=== PATIENT | female | born 1960 | race Caucasian/White ===

== ENCOUNTER 2017-10-29 13:33 | Day surgery (SDC) | payer OTHER ==
[2017-10-24 13:02] LABS: BASOPHILS % (AUTO) 0.4 % (0-1); EOSINOPHILS # (AUTO) 0.2 X10'3 (0-0.9); EOSINOPHILS % (AUTO) 2.2 % (0-6); HEMATOCRIT 39.5 % (35.0-45.0); HEMOGLOBIN 13.6 g/dl (12.0-16.0); LYMPHOCYTES # (AUTO) 1.8 X10'3 (1.1-4.8); LYMPHOCYTES % (AUTO) 16.9 % (21-51); MEAN CORPUSCULAR HEMOGLOBIN 29.8 PG (27.0-31.0); MEAN CORPUSCULAR HGB CONC 34.4 % (33.0-36.5); MEAN CORPUSCULAR VOLUME 86.7 FL (78-98); MONOCYTES # (AUTO) 0.8 X10'3 (0-0.9); MONOCYTES % (AUTO) 7.4 % (2-12); NEUTROPHILS # (AUTO) 7.8 X10'3 (1.8-7.7); NEUTROPHILS % (AUTO) 73.1 % (42-75); PLATELET COUNT 249 X10'3 (140-440); RED BLOOD COUNT 4.56 X10'6 (4.20-5.60); RED CELL DISTRIBUTION WIDTH 14.1 % (11.5-14.5); WHITE BLOOD COUNT 10.6 X10'3 (4.5-11.0)
[2017-10-24 13:11] LABS: ALBUMIN 3.3 G/DL (3.4-5.0); ANION GAP 6 (8-16); BLOOD UREA NITROGEN 18 MG/DL (7-18); BUN/CREATININE RATIO 29.5 (6.6-38.0); CALCIUM 9.5 MG/DL (8.5-10.1); CHLORIDE 99 MMOL/L (99-107); CREATININE 0.61 MG/DL (0.40-0.90); GLUCOSE 177 MG/DL (70-104); POTASSIUM 3.7 MMOL/L (3.5-5.1); SODIUM 141 MMOL/L (135-145); TOTAL CARBON DIOXIDE 35.6 MMOL/L (24-32); eGFR > 90 ML/MIN
[2017-10-24 13:13] LABS: INR 3.5 INR; PARTIAL THROMBOPLASTIN TIME 37 SECONDS (22-32); PROTHROMBIN TIME 34.8 SECONDS (9.0-12.0)
[~2017-10-29] VITALS: Ht 160 cm; Wt 68.1 kg
[2017-10-29] VITALS (14 sets, daily range): BP systolic 107–142; BP diastolic 68–92
[~2017-10-29 13:33] MED LIST: ASCO500C15 PO; ASPI-1071 PO; ATOR40TA PO; GABA-581 PO; HYDR-569 PO; HYDR25TA4 PO; INSU100V10 SQ; LANTUS SQ; LEVO50TA PO; METF1000 PO; MULT-38 PO; SOTA80TA PO; VENL75CA55 PO; WARF5TAB7 PO
[2017-10-29] MEDS ORDERED: normal saline 1000ml 1,000 ML IV SCH (13:55)
[2017-10-29] MEDS ORDERED: MIDAZolam 1mg/ml 10ml vial IV ONE (13:55)
[2017-10-29] MEDS ORDERED: fentaNYL/PF 50MCG/1 ML 2ML syringe IV ONE (13:55)
[2017-10-29] MEDS ORDERED: POTA20TA10 PO (14:19)
[2017-10-29] MEDS ORDERED: FURO40TA4 PO (14:19)
[2017-10-29 14:51] LABS: ALBUMIN 3.1 G/DL (3.4-5.0); ANION GAP 6 (8-16); BLOOD UREA NITROGEN 19 MG/DL (7-18); BUN/CREATININE RATIO 21.1 (6.6-38.0); CALCIUM 8.9 MG/DL (8.5-10.1); CHLORIDE 92 MMOL/L (99-107); POTASSIUM 3.7 MMOL/L (3.5-5.1); SODIUM 129 MMOL/L (135-145); TOTAL CARBON DIOXIDE 30.8 MMOL/L (24-32); eGFR 64 ML/MIN
[2017-10-29 14:54] LABS: GLUCOSE 599 MG/DL (70-104)
[2017-10-29] MEDS ORDERED: glucagon, human recombinant 1mg kit SUBCUT PRN (15:15)
[2017-10-29] MEDS ORDERED: MESSAGE TO PHARMACY PO ONE (15:15)
[2017-10-29] MEDS ORDERED: dextrose ORAL solution 15 GM/59 ML bottle PO PRN ×2 (15:15)
[2017-10-29] MEDS ORDERED: dextrose 50%-water 50ml dispensing syringe IV PRN ×2 (15:15)
[2017-10-29] MEDS ORDERED: insulin Lispro (HumaLOG) vial - multi-dose SQ SCH (15:15)
[2017-10-29] MEDS ORDERED: MIDAZolam 5mg/5ml vial IV ONE (16:05)
[2017-10-29] MEDS ORDERED: insulin glargine (Lantus) pen - multi-dose SQ SCH (21:00)
== END 2017-10-29 18:50 | disposition home or self-care (01) ==
LOC: SSTAY O 13:33
PROVIDERS: ATTEND Internal Medicine Interventional Cardiology
DX: I48.91 Unspecified atrial fibrillation (principal); I25.10 Atherosclerotic heart disease of native coronary artery without angina pectoris; I25.2 Old myocardial infarction; E78.5 Hyperlipidemia, unspecified; I50.9 Heart failure, unspecified; Z79.01 Long term (current) use of anticoagulants; E11.40 Type 2 diabetes mellitus with diabetic neuropathy, unspecified; Z88.2 Allergy status to sulfonamides; Z88.6 Allergy status to analgesic agent; Z88.8 Allergy status to other drugs, medicaments and biological substances
CPT/HCPCS: 36415; 80048; 82948; 85025; 85610; 85730; 92960; 93005; J1815; J2250; J3010; J7030; A4620